=== PATIENT | male | born 1995 | race Caucasian/White ===

== ENCOUNTER 2018-01-04 11:24 | Day surgery (SDC) | payer BC ==
[2018-01-04] MEDS ORDERED: LIDOCAINE 2% (SDV) 5 ML INJ (12:36)
[2018-01-04] MEDS ORDERED: PROPOFOL 40 ML (12:36)
== END 2018-01-04 17:24 | disposition home or self-care (01) ==
LOC: GIL 11:24
DX: K21.9 Gastro-esophageal reflux disease without esophagitis (principal); B96.81 Helicobacter pylori [H. pylori] as the cause of diseases classified elsewhere; K29.60 Other gastritis without bleeding
CPT/HCPCS: 43239; 87081